=== PATIENT | female | born 1955 | race Caucasian/White ===

== ENCOUNTER 2020-08-31 19:30 | Emergency (ER) | payer BC, SELFPAY ==
[2020-08-31 20:03] VITALS: BP 169/107; PULSE 95; TEMP 36.7; O2SAT 97; BMI 31.4
--- NOTE | 2020-08-31 21:22 | ED_ITS ---
HPI - Skin/Abscess/Foreign Bdy General: Chief complaint: Skin/Abscess/Foreign Body Stated complaint: bug bite, leg swelling and rash Time Seen by Provider: 08/31/20 21:20 History of Present Illness: HPI narrative: Patient is a 65-year-old female comes to the ED with a lesion on right great toe. Patient says approximately 2- 1/2 weeks ago she was working out in her yard and she felt something poke her right great toe. She is unsure if it was a plant with a spike that poked her or if it was a bug bite. She said it itched and got red. She says over the past week and a half it was improving and the rash got really small but did appear to have a blackhead on it. She picked at it a couple days ago and ever since then she has had increased redness around great toe with some tenderness. She also noticed some white pustules forming. She saw her PCP yesterday and they put her on doxycycline. She is only taken 1 dose of doxycycline. Denies any other symptoms. Associated symptoms: Deny chills, fever(s), nausea or vomiting Review of Systems Const: Denies: fever(s), chills or fatigue Eyes: Denies: change in vision or eye discomfort ENMT: Denies: throat pain, odynophagia, nasal discharge or nasal congestion Card: Denies: chest pain, palpitations, edema, swelling of feet/ankles, dyspnea on exertion or orthopnea Resp: Denies: dyspnea, productive cough or non-productive cough GI: Denies: abdominal pain, nausea, vomiting, diarrhea, constipation or hematochezia : Denies: flank pain, dysuria or hematuria Musc: Denies: neck pain, back pain or extremity swelling Skin/Breast: Reports: new lesions (Erythema, small white pustule and tenderness rash on right great toe); Denies: rash Neuro: Denies: headache(s), numbness in extremities or weakness in extremities PFSH ED PFSH: Social History Smoking and tobacco status: never smoked Physical Exam Const: COMMON NORMALS: no acute distress, patient oriented x3 and alert GENERAL APPEARANCE: cooperative and comfortable HENMT: COMMON NORMALS: normocephalic HEAD & SCALP: normocephalic MOUTH: Normal oral and palatal mucosa present THROAT: posterior oropharynx normal and uvula midline Neck/C-Spine: COMMON NORMALS: supple GENERAL: Yes normal visual inspection Resp: COMMON NORMALS: normal respiratory effort, No retractions, No use of accessory muscles and clear to auscultation bilaterally AUSCULTATION: clear to auscultation bilaterally Cardio: COMMON NORMALS: regular rate, regular rhythm, S1 normal heart sound present, S2 normal heart sound present, No gallops present (Cardio), No clicks present (Cardio), No murmurs present (Cardio) and Peripheral pulses 2+ throughout RATE: regular rate RHYTHM: regular rhythm HEART SOUNDS: S1 normal heart sound present and S2 normal heart sound present PERIPHERAL PULSES: Peripheral pulses 2+ throughout GI: COMMON NORMALS: Normal to inspection, nondistended, normoactive bowel sounds present, Soft to palpation, non-tender and no masses PALPATION: Yes Soft to palpation : COMMON NORMALS: Yes no CVA tenderness BLADDER/KIDNEY EXAM: Yes no CVA tenderness Back/Pelvis: COMMON NORMALS: no CVA tenderness Extremity: NARRATIVE EXTREMITY EXAM: Right foot?great toe?patient has erythema, warmth and tenderness over the great toe. She also has small purulent pustule noted. Findings suggestive of cellulitis. Neuro: COMMON NORMALS: patient oriented x3 and moves all extremities SENSORIUM/ORIENTATION: Yes alert Skin: GENERAL SKIN EXAM: dry skin Course Vital Signs: Vital signs: Vital Signs Temperature 98.1 F 08/31/20 20:03 Pulse Rate 68 08/31/20 21:54 Respiratory Rate 18 08/31/20 21:54 Blood Pressure 132/78 08/31/20 21:54 Pulse Oximetry 97 08/31/20 20:03 MDM - Skin/Abscess/Foreign Bdy MDM Narrative: Medical decision making narrative: Patient is a 65-year-old female comes to the ED with cellulitis on right great toe. Has small pustule on rash area as well. Patient was seen by her provider 2 days ago and put on doxycycline. Patient has taken 1 dose of doxycycline so far. Patient appears nontoxic and is in no acute distress or pain. Vital stable. With patient's exam findings of cellulitis and some pustule/purulent drainage I switched patient to clindamycin. Patient was given a dose of clindamycin here in the ED and sent home with a prescription for clindamycin. She was told to follow-up with her PCP in 5 to 7 days for reevaluation. Return to ED precautions given. Patient stood agree with plan. Discharge Plan Discharge Patient Disposition: Home Clinical Impression: Cellulitis Qualifiers: Site of cellulitis: extremity Site of cellulitis of extremity: lower extremity Laterality: right Qualified Code(s): L03.115 - Cellulitis of right lower limb Condition: Stable Prescriptions: New clindamycin HCl 150 mg capsule 300 mg PO QID 7 Days Qty: 56 RF: 0 No Action levothyroxine [Levo-T] 75 mcg tablet 75 mcg PO DAILY RF: 0 doxycycline hyclate 100 mg capsule 100 mg PO BID 7 Days Qty: 14 RF: 0 Discharge Orders: Discharge ED (Routine); Ordered 08/31/20 Ordered By: Joce Mcpherson Referrals: Len Johnson MD [Primary Care Provider] - Discharge Diet: Regular Discharge Activity: Resume usual activity Patient Instructions: Cellulitis (ED) Activity Restrictions/Additional Instructions: Follow up with PCP in 5-7 days for reevaluation. Stop taking doxycycline and start taking Clindamycin prescription. Return to ED if it is worsening after 48hours plus after being on antibiotics. Coding Level of Care Code ED Grain Un[employer] Machine for Marguerite Fwd Exam Comprehensive
[2020-08-31] MEDS: clindamycin 150 mg Capsule 300 MG PO (21:53)
[2020-08-31 21:54] VITALS: BP 132/78; PULSE 68; RESP 18
== END 2020-08-31 21:56 | disposition home or self-care (01) ==
PROVIDERS: Emergency Provider Physician Assistant; PCP Family Medicine
DX: L03.031 Cellulitis of right toe (principal); L08.0 Pyoderma
CPT/HCPCS: 99282

== ENCOUNTER 2021-01-08 07:14 | Outpatient (CLI) | payer BC, SELFPAY ==
--- NOTE | 2021-01-08 07:19 | MM_ITS ---
WS: [id number] Exam: [id number] Date/Time of Exam: 01/08/2021 7:21 AM Reason For Exam: SCREENING VIEWS: MLO and CC views both breasts. Comparison made with prior exam of 06/14/2017 and 02/12/2019. Findings: There was no sign of mass, architectural distortion or suspicious calcification in either breast. Fa tty MM/[id number] Impression: BI-RADS: 2-Benign FOLLOW-UP: 1 Year Follow-up This mammogram was also analyzed by the Computer Aided Detection System R2 Imag e [employer] Tractor Operator.
== END 2021-01-08 07:15 | disposition home or self-care (01) ==
LOC: RADSHAW 07:15
PROVIDERS: PCP Family Medicine; Visit Provider Family Medicine
DX: Z12.31 Encounter for screening mammogram for malignant neoplasm of breast (principal)
CPT/HCPCS: 77067

== ENCOUNTER → 2021-06-24 10:11 | Outpatient (BNVA) | payer BC, SELFPAY | PROVIDERS: PCP Family Medicine; Visit Provider Nurse Practitioner Women's Health | DX: N76.2 Acute vulvitis (principal) | CPT/HCPCS: 88305; 88312 ==

== ENCOUNTER 2022-01-10 08:07 | Outpatient (CLI) | payer BC, SELFPAY ==
--- NOTE | 2022-01-10 08:16 | MM_ITS ---
WS: [id number] SCREENING DIGITAL TOMOSYNTHESIS MAMMOGRAM WITH CAD HISTORY: SCREENING COMPARISON: 01/08/2021 and 02/12/2019 Bilateral CC and MLO with tomosynthesis views submitted. Synthetic mammography reviewed. Computer aid ed detection analyzed. Breast composition: The breasts are almost entirely fatty. No suspicious masses, microcalcifications or architectural distortion. MM/[id number] IMPRESSION: BI-RADS: 1-Negative FOLLOW UP: 1 Year Follow-up
== END 2022-01-10 08:08 | disposition home or self-care (01) ==
LOC: RAD 08:07
PROVIDERS: PCP Family Medicine; Visit Provider Family Medicine
DX: Z12.31 Encounter for screening mammogram for malignant neoplasm of breast (principal)
CPT/HCPCS: 77063; 77067

== ENCOUNTER → 2022-11-09 10:57 | Outpatient (BNVA) | payer MEDICARE, SELFPAY | PROVIDERS: PCP Family Medicine; Visit Provider Family Medicine | DX: Z00.00 Encounter for general adult medical examination without abnormal findings (principal); E03.9 Hypothyroidism, unspecified; L28.0 Lichen simplex chronicus | CPT/HCPCS: 80053; 80061; 84443; 85025 ==